=== PATIENT | female | born 1965 | race Caucasian/White ===

== ENCOUNTER 2018-01-06 23:26 | Emergency (ER) | payer OTHER ==
[2018-01-07 01:21] LABS: ABS Basophils 0 10^3/ul (0-0.2); ABS Eosinophils 0.1 10^3/ul (0-0.6); ABS Monocytes 0.7 10^3/ul (0-0.8); ABS Neutrophils 8.6 10^3/ul (1.5-7.7); ABS Nucleated RBC 0 10^3/ul; Eosinophil % 0.9 % (0-6); Hematocrit 38 % (35-47); Hemoglobin 12.9 g/dl (12.0-16.0); Lymphocyte % 9.4 % (25-47); Mean Corpuscular HGB Conc 34 g/dl (31-36); Mean Corpuscular Hemoglobin 30 pg (27-31); Mean Corpuscular Volume 89 fL (80-97); Mean Platelet Volume 7.5 um3 (7.4-10.4); Nucleated Red Blood Cells % 0; Platelet Count 348 10^3/ul (150-450); Red Blood Count 4.25 10^6/ul (4.00-5.40); Red Cell Distribution Width 15 % (10.5-15); White Blood Count 10.4 10^3/ul (3.5-10.8)
[2018-01-07 01:40] LABS: EGFR Non-African American 72.6 (>60)
[2018-01-07] MEDS ORDERED: NS 0.9% 1000 ML* 1,000 ML IV ONE ×2 (03:45→07:44)
[2018-01-07] MEDS ORDERED: Iohexol 300* (CONTRAST) 10 ML SDV IV ONE (04:43)
--- NOTE | 2018-01-07 07:56 | RAD ---
INDICATION: Abdominal pain COMPARISON: None TECHNIQUE: Axial source images were obtained from the hemidiaphragms to the symphysis pubis following administration of intravenous contrast as requested by the emergency department. The lack of oral contrast limits evaluation of the bowel. Coronal and sagittal reconstructed images were acquired. Lung bases: The lung bases are clear. Liver: The liver is normal in size. There are multiple small hepatic cysts. There is no ductal dilatation. Gallbladder: The gallbladder is presumed to be contracted or may be absent. Spleen: The spleen is normal in size. There are no masses. Pancreas: There is no focal pancreatic mass or ductal dilatation. Adrenal glands: There is no evidence of adrenal mass. Kidneys: The kidneys are normal in size and position. There are prompt nephrograms and there is prompt excretion bilaterally. There are no renal parenchymal masses. There is no evidence of nephrolithiasis. Adenopathy: There is no evidence of adenopathy by size criteria. Fluid collections: There is moderate free fluid. Vessels:There are no significant atherosclerotic changes involving the aorta. There is no focal aneurysm. The iliac vessels are normal in caliber. The IVC appears normal. GI tract: There is postoperative change related related to colonic resection with Fox pouch. There is ostomy in the right lower quadrant. There may be contained extraluminal air in the central abdomen. There is edema in several small bowel loops which are fluid-filled. There is mesenteric edema. Pelvic organs: The uterus and adnexa appear normal Bladder: There are no bladder masses. Abdominal and pelvic soft tissues: The extraperitoneal abdominal and pelvic soft tissues appear normal.. Osseous structures: There are no acute osseous findings. Other: None IMPRESSION: POSTOPERATIVE CHANGES WITH COLONIC RESECTION WITH KISHORE POUCH AND OSTOMY. FREE FLUID WITH SMALL BOWEL EDEMA AND POSSIBLE EXTRALUMINAL GAS.
[2018-01-07 08:50] LABS: Urine Appearance Clear; Urine Blood Negative (Negative); Urine Color Straw; Urine Ketones Negative (Negative); Urine Protein Negative (Negative); Urine Specific Gravity 1.018 (1.010-1.030); Urine Urobilinogen Negative (Negative)
--- NOTE | 2018-01-07 09:13 | RAD ---
INDICATION: Crohn's disease with abdominal pain. Initial scanning performed without oral contrast. Repeat scan with oral contrast COMPARISON: Intravenously enhanced examination same date TECHNIQUE: Axial scans of the abdomen pelvis were obtained following administration of oral contrast. FINDINGS: There is contrast in the stomach and proximal to mid small bowel. The contrast-enhanced images demonstrate intraluminal contrast in the area of concern in the central abdomen. There is no evidence of extraluminal air. Again noted is a Naida procedure with an ostomy in the right lower quadrant. There is moderate free fluid. The solid viscera is essentially unremarkable. IMPRESSION: CONTRAST-ENHANCED IMAGES SHOW NO EVIDENCE OF EXTRALUMINAL AIR. SMALL BOWEL POSTSURGICAL/ INFLAMMATORY CHANGES IN THIS PATIENT WITH CROHN'S DISEASE AND PRIOR HISTORY OF EPSTEIN POUCH PROCEDURE WITH RIGHT LOWER QUADRANT OSTOMY. FREE FLUID.
--- NOTE | 2018-01-07 09:43 | ED ---
Manjinder Baker Jade, mikiibed for Silvestre Barboza MD on 01/07/18 at 0756 . Progress - Progress Note Progress Note: Pt still has minimal discomfort of her LLQ. - Results/Orders Results/Orders: CT Abd/Pel w/ contrast 03:45: POSTOPERATIVE CHANGES WITH COLONIC RESECTION WITH KISHORE POUCH AND OSTOMY. FREE FLUID WITH SMALL BOWEL EDEMA AND POSSIBLE EXTRALUMINAL GAS. ED physician reviewed radiology report. CT Abd/Pel w/o contrast 06:40: CONTRAST-ENHANCED IMAGES SHOW NO EVIDENCE OF EXTRALUMINAL AIR. SMALL BOWEL POSTSURGICAL/ INFLAMMATORY CHANGES IN THIS PATIENT WITH CROHN'S DISEASE AND PRIOR HISTORY OF EPSTEIN POUCH PROCEDURE WITH RIGHT LOWER QUADRANT OSTOMY. FREE FLUID. ED physician reviewed radiology report. Re-Evaluation - Re-Evaluation First Eval Re-Evaluation Time: 09:34 Change: Improved Comment: Pt has a minimal amount of abdominal discomfort, which is at her normal level. Course/Dx - Course Course Of Treatment: DISCUSSED CT RESULTS WITH THE PATIENT AND HER . ABDOMINAL DISCOMFORT AT BASELINE UPON DISCHARGE. F/U WITH HER GI DOCTOR; RETURN TO THE ED IF WORSE. - Diagnoses Provider Diagnoses: Abdominal pain, Crohns disease Discharge - Sign-Out/Discharge Documenting (check all that apply): Receiving Sign-Out - Dr. Suarez Receiving patient FROM: Charo Suarez - Discharge Plan Condition: Stable Disposition: HOME Patient Education Materials: Crohn Disease (ED), Acute Abdominal Pain (ED) Referrals: [facility] [Provider Group] Ganga Murry MD [Medical Doctor] - Additional Instructions: FOLLOW UP WITH YOUR ATG ARCHITECT. GET RECHECKED FOR ANY WORSENING OF YOUR CONDITION; PAIN, FEVER, YOU FEEL ILL OR QUESTIONS OR CONCERNS. - Billing Disposition and Condition Condition: STABLE Disposition: Home The documentation as recorded by the Manjinder sparks Jade accurately reflects the service I personally performed and the decisions made by me, Silvestre Barboza MD.
[2018-01-07 09:55] VITALS: BP 111/78
--- NOTE | 2018-01-07 21:51 | ED ---
Clark Baker Tariq, scribed for Charo Suarez MD on 01/07/18 at 0600 . Abdominal Pain/Female - HPI Summary HPI Summary: A 52 y/o female presents to ED c/o abdominal pain. Pt was at home when she felt abdominal pain and had frequent episodes of diarrhea. Additionally, has flatulence. Currently, her abdominal pain has passed, acute pain is gone, however it is just aching now. She denies burning during urination or change in frequency. According to pt, she has been diagnosed with Crohns Disease, which she thinks she has had a SBO. "I get them all the time because of my Crohns". Current medications are Britney for Crohns. PMHx of partial colectomy. - History of Current Complaint Chief Complaint: EDAbdPain Stated Complaint: VOMITING/CONSTIPATION Time Seen by Provider: 01/07/18 03:05 Hx Obtained From: Patient Onset/Duration: Sudden Onset, Lasting Hours, Resolved Timing: Hours Severity Currently: None Pain Intensity: 0 Pain Scale Used: 0-10 Numeric Radiates: No Aggravating Factor(s): Nothing Alleviating Factor(s): Nothing Associated Signs and Symptoms: Positive: Diarrhea - Frequent, Other: - flatulence. Allergies/Adverse Reactions: Allergies Allergy/AdvReac Type Severity Reaction Status Date / Time No Known Allergies Allergy Verified 01/07/18 03:21 Home Medications: Home Medications Adalimumab [Humira] 10 mg SQ SEE INSTRUCTIONS 01/07/18 [History Confirmed ] Ciprofloxacin HCl [Cipro] 500 mg PO BID 01/07/18 [History Confirmed 01/07/18] PMH/Surg Hx/FS Hx/Imm Hx Endocrine/Hematology History: Denies: Hx Diabetes Cardiovascular History: Denies: Hx Hypertension Infectious Disease History: Yes Infectious Disease History: Denies: Traveled Outside the [place] in Last 30 Days - Family History Known Family History: Negative: Hypertension, Diabetes - Social History Alcohol Use: Weekly Substance Use Type: Reports: None Smoking Status (MU): Former Smoker Review of Systems Negative: Fever Positive: Abdominal Pain - Resolved, Other - flatulence Positive: no symptoms reported All Other Systems Reviewed And Are Negative: Yes Physical Exam - Summary Physical Exam Summary: GENERAL: Patient is a well developed and nourished female who is lying comfortable in the stretcher. Patient is not in any acute respiratory distress. HEAD AND FACE: Normocephalic EYES: PERRLA, EOMI x 2. EARS: Hearing grossly intact. MOUTH: Oropharynx within normal limits. NECK: Supple, trachea is midline, no adenopathy, no JVD, no carotid bruit. CHEST: Symmetric, no tenderness at palpation LUNGS: Clear to auscultation bilaterally. No wheezing or crackles. CVS: Regular rate and rhythm, S1 and S2 present, no murmurs or gallops appreciated. ABDOMEN: Soft, non-tender. Bowel sounds are normal. No abdominal abnormal pulsations. EXTREMITIES: Full ROM in all major joints, no edema, no cyanosis or clubbing. NEURO: Alert and oriented x 3. No acute neurological deficits. Speech is normal and follows commands. SKIN: Dry and warm Neuro exam extended: Cranial nerves II-XII grossly intact, no dysmetria finger to nose, nml heel to donaldson Triage Information Reviewed: Yes Vital Signs On Initial Exam: Initial Vitals Temp Pulse Resp BP Pulse Ox 98.1 F 88 16 124/79 100 01/06/18 23:34 01/06/18 23:34 01/06/18 23:34 01/06/18 23:34 01/06/18 23:34 Vital Signs Reviewed: Yes Diagnostics - Vital Signs Vital Signs Temp Pulse Resp BP Pulse Ox 01/07/18 04:46 87 128/79 100 01/07/18 04:45 90 100 01/07/18 01:58 0 F 0 0 00/00 0 01/06/18 23:34 98.1 F 88 16 124/79 100 - Laboratory Lab Results: Lab Results 01/07/18 01/07/18 01/07/18 Range/Units 01:07 01:07 01:07 WBC 10.4 (3.5-10.8) 10^3/ul RBC 4.25 (4.00-5.40) 10^6/ul Hgb 12.9 (12.0-16.0) g/dl Hct 38 (35-47) % MCV 89 (80-97) fL MCH 30 (27-31) pg MCHC 34 (31-36) g/dl RDW 15 (10.5-15) % Plt Count 348 (150-450) 10^3/ul MPV 7.5 (7.4-10.4) um3 Neut % (Auto) 82.5 (38-83) % Lymph % (Auto) 9.4 L (25-47) % [place] % (Auto) 6.8 (0-7) % Eos % (Auto) 0.9 (0-6) % Baso % (Auto) 0.4 (0-2) % Absolute Neuts (auto) 8.6 H (1.5-7.7) 10^3/ul Absolute Lymphs (auto) 1.0 (1.0-4.8) 10^3/ul Absolute Monos (auto) 0.7 (0-0.8) 10^3/ul Absolute Eos (auto) 0.1 (0-0.6) 10^3/ul Absolute Basos (auto) 0 (0-0.2) 10^3/ul Absolute Nucleated RBC 0 10^3/ul Nucleated RBC % 0 Sodium 138 (135-145) mmol/L Potassium 3.5 (3.5-5.0) mmol/L Chloride 106 (101-111) mmol/L Carbon Dioxide 25 (22-32) mmol/L Anion Gap 7 (2-11) mmol/L BUN 7 (6-24) mg/dL Creatinine 0.82 (0.51-0.95) mg/dL Est GFR ( Amer) 87.9 (>60) Est GFR (Non-Af Amer) 72.6 (>60) BUN/Creatinine Ratio 8.5 (8-20) Glucose 121 H (70-100) mg/dL Lactic Acid 2.6 H* (0.5-2.0) mmol/L Calcium 8.6 (8.6-10.3) mg/dL Total Bilirubin 0.40 (0.2-1.0) mg/dL AST 20 (13-39) U/L ALT 17 (7-52) U/L Alkaline Phosphatase 46 (34-104) U/L C-Reactive Protein 7.95 (<8.01) mg/L Total Protein 5.8 L (6.4-8.9) g/dL Albumin 3.7 (3.2-5.2) g/dL Globulin 2.1 (2-4) g/dL Albumin/Globulin Ratio 1.8 (1-3) Lipase 25 (11.0-82.0) U/L Result Diagrams: 01/07/18 01:07 01/07/18 01:07 Lab Statement: Any lab studies that have been ordered have been reviewed, and results considered in the medical decision making process. - CT CT A/P CT Interpretation Completed By: Radiologist - Inflamed segment of small bowel with contained rupture, or fistula and surrounding mesenteric inflammation. Direct comparison with previous imaging studies is recommended. ED PHYSICIAN REVIEWED THIS RADIOLOGY REPORT. Abdominal Pain Fem Course/Dx - Diagnoses Provider Diagnoses: Abdominal pain, Crohns disease Discharge - Sign-Out/Discharge Documenting (check all that apply): Sign-Out Patient Signing out patient TO: Silvestre Barboza - Pending CT A/P and re-eval - Discharge Plan Condition: Stable Disposition: HOME Patient Education Materials: Crohn Disease (ED), Acute Abdominal Pain (ED) Referrals: [facility] [Provider Group] Ganga Murry MD [Medical Doctor] - Additional Instructions: FOLLOW UP WITH YOUR ALFALFA DEHYDRATOR OPERATOR. GET RECHECKED FOR ANY WORSENING OF YOUR CONDITION; PAIN, FEVER, YOU FEEL ILL OR QUESTIONS OR CONCERNS. - Billing Disposition and Condition Condition: STABLE Disposition: Home The documentation as recorded by the Clark sparks Tariq accurately reflects the service I personally performed and the decisions made by me, Charo Suarez MD.
== END 2018-01-07 09:55 | disposition home or self-care (01) ==
LOC: ED 23:26
DX: K50.90 Crohn's disease, unspecified, without complications (principal); R10.9 Unspecified abdominal pain; R19.7 Diarrhea, unspecified; Z87.891 Personal history of nicotine dependence
CPT/HCPCS: 36415; 74176; 74177; 80053; 81003; 83605; 83690; 85025; 86140; 96360; 99283; Q9967